=== PATIENT | male | born 2000 | race Caucasian/White ===

== ENCOUNTER 2022-11-07 13:37 | Emergency (ER) | payer OTHER ==
[2022-11-07 13:44] VITALS: BP 157/88; PULSE 122; RESP 18; TEMP 98.7; BMI 35.9
[2022-11-07] MEDS ORDERED: DIPHTH,PERTUSS(ACELL),TET 0.5 ML DISP.SYRIN IM ONE ×3 (14:06→14:35)
[2022-11-07] MEDS ORDERED: ACETAMINOPHEN 500 MG TABLET (FP) PO ONE (14:06)
[2022-11-07] MEDS ORDERED: LIDOCAINE 2%/EPINEPHRINE 1:100000 (50 ML MD VIAL) INF ONE (14:06)
[2022-11-07] MEDS ORDERED: ACETAMINOPHEN 500 MG TABLET (FP) ONE (14:30)
== END 2022-11-07 15:00 | disposition home or self-care (01) ==
LOC: JERFT 13:37
PROC: 0HQ1XZZ Repair Face Skin, External Approach (ICD-10-PCS; principal; 2022-11-07)
PROC: 3E0234Z Introduction of Serum, Toxoid and Vaccine into Muscle, Percutaneous Approach (ICD-10-PCS; 2022-11-07)
DX: S01.81XA Laceration without foreign body of other part of head, initial encounter (principal); X58.XXXA Exposure to other specified factors, initial encounter
CPT/HCPCS: 70450-TC; 90715; 99284-25

== ENCOUNTER 2022-11-19 19:05 | Emergency (ER) | payer OTHER ==
[2022-11-19 19:18] VITALS: BP 146/85; PULSE 89; RESP 19; TEMP 98.9; BMI 36.6
== END 2022-11-19 20:26 | disposition home or self-care (01) ==
LOC: JERFT 19:05 → JER 19:05 → JERFT 20:26
DX: Z48.02 Encounter for removal of sutures (principal)
CPT/HCPCS: 99281-25